=== PATIENT | female | born 1985 | race Caucasian/White ===

== ENCOUNTER 2017-11-27 11:19 | Emergency (ER) | payer MEDICAID ==
[~2017-11-27] VITALS: Ht 170.2 cm; Wt 98.0 kg
[~2017-11-27 11:19] MED LIST: IBUP-1051 PO; IBUP200C5 PO; PSEU-259 PO
[2017-11-27 11:26] VITALS: BP 100/53
[2017-11-27] MEDS ORDERED: AMOX-580 PO (12:31)
== END 2017-11-27 12:47 | disposition home or self-care (01) ==
LOC: ER 11:19
DX: J32.1 Chronic frontal sinusitis (principal)
CPT/HCPCS: 99283